=== PATIENT | male | born 1955 | race Caucasian/White ===

== ENCOUNTER 2017-12-18 14:36 | Emergency (ER) | payer OTHER ==
[~2017-12-18] VITALS: Ht 180.3 cm; Wt 84.0 kg
[2017-12-18] MEDS ORDERED: TRAMADOL HYDROC50 MG PO (15:48)
[2017-12-18 16:00] VITALS: BP 134/83
== END 2017-12-18 16:00 | disposition home or self-care (01) | DRG 563 ==
LOC: ED 14:36
PROC: 2W3FX1Z Immobilization of Left Hand using Splint (ICD-10-PCS; principal; 2017-12-18)
DX: S62.613A Displaced fracture of proximal phalanx of left middle finger, initial encounter for closed fracture (principal); S62.615A Displaced fracture of proximal phalanx of left ring finger, initial encounter for closed fracture; S62.625A Displaced fracture of middle phalanx of left ring finger, initial encounter for closed fracture; S62.617A Displaced fracture of proximal phalanx of left little finger, initial encounter for closed fracture; E11.9 Type 2 diabetes mellitus without complications; I10 Essential (primary) hypertension; F17.210 Nicotine dependence, cigarettes, uncomplicated; H54.8 Legal blindness, as defined in USA; I69.398 Other sequelae of cerebral infarction; W05.0XXA Fall from non-moving wheelchair, initial encounter; Y92.002 Bathroom of unspecified non-institutional (private) residence as the place of occurrence of the external cause

== ENCOUNTER 2018-06-06 14:49 | Emergency (ER) | payer OTHER ==
[~2018-06-06] VITALS: Ht 180.3 cm; Wt 86.4 kg
[~2018-06-06 14:49] MED LIST: TRAMADOL HYDROC50 MG PO
[2018-06-06] MEDS ORDERED: CALCIUM 600 +600 MG PO (16:01)
[2018-06-06] MEDS ORDERED: LOSARTAN POTASS50 MG PO (16:02)
[2018-06-06] MEDS ORDERED: FOLIC ACID1 MG PO (16:02)
[2018-06-06] MEDS ORDERED: FLEXERIL PO (16:14)
[2018-06-06] MEDS ORDERED: PERCOCET 10/31 COMBO PO (16:14)
[2018-06-06] MEDS ORDERED: METFORMIN500 MG PO (16:15)
[2018-06-06] MEDS ORDERED: ONGLYZA5 MG PO (16:16)
[2018-06-06] MEDS ORDERED: MULTI VIT PO (16:16)
[2018-06-06] MEDS ORDERED: OMEPRAZOLE10 MG PO (16:17)
[2018-06-06] MEDS ORDERED: GLUCOSAMINE S1000 M1 PO (16:17)
[2018-06-06 17:06] VITALS: BP 167/88
== END 2018-06-06 17:06 | disposition home or self-care (01) | DRG 552 ==
LOC: ED 14:49
DX: S32.049A Unspecified fracture of fourth lumbar vertebra, initial encounter for closed fracture (principal); S32.059A Unspecified fracture of fifth lumbar vertebra, initial encounter for closed fracture; M47.817 Spondylosis without myelopathy or radiculopathy, lumbosacral region; W18.39XA Other fall on same level, initial encounter; Y93.01 Activity, walking, marching and hiking; Y92.512 Supermarket, store or market as the place of occurrence of the external cause

== ENCOUNTER 2018-07-03 23:44 | Inpatient (IN) | payer OTHER ==
[~2018-07-03] VITALS: Ht 180.3 cm; Wt 76.3 kg
[~2018-07-03 23:44] MED LIST changes: +CALCIUM 600 +600 MG PO; +FLEXERIL PO; +FOLIC ACID1 MG PO; +GLUCOSAMINE S1000 M1 PO; +LOSARTAN POTASS50 MG PO; +METFORMIN500 MG PO; +MULTI VIT PO; +OMEPRAZOLE10 MG PO; +ONGLYZA5 MG PO; +PERCOCET 10/31 COMBO PO
--- NOTE | 2018-07-03 23:50 | NUR ---
BY EMS TO ROOM 13.
--- NOTE | 2018-07-04 00:01 | NUR ---
CLEANED PT OF URINE AND FECES.
[2018-07-04 00:17] LABS: HEMATOCRIT 37.9 % (39.0-50.0); HEMOGLOBIN 13.8 g/dl (14.0-18.0); IMMATURE GRANULOCYTES 1.2 % (0.0-5.0); MEAN CELL VOLUME 95.5 fL CALC (80.0-100.0); MEAN CORPUSCULAR HGB 34.8 pG CALC (26.0-32.0); MEAN CORPUSCULAR HGB CONC 36.4 g/L CALC (32.0-36.0); NEUT# 10.85 thou/uL (1.82-7.42); RED BLOOD COUNT 3.97 mill/uL (4.70-6.10); RED CELL DISTRI WIDTH 11.9 % (11.5-15.5)
--- NOTE | 2018-07-04 00:17 | NUR ---
PT TO CT.
[2018-07-04 00:36] LABS: INTERNATIONAL NORMALIZED RATIO 1.1 RATIO (0.7-1.3); PROTHROMBIN TIME 11.2 SECONDS (9.0-12.5)
--- NOTE | 2018-07-04 00:45 | NUR ---
PT RETURNED FROM CT. URINAL IN PLACE. CALL VU IN REACH.
[2018-07-04 00:52] LABS: ALBUMIN 2.9 g/dL (3.2-5.0); ALKALINE PHOSPHATASE 72 u/l (38-126); ANION GAP 19 (6-22 (CALC)); BILIRUBIN, TOTAL 1.1 mg/dL (0.0-1.4); BUN 25 mg/dL (8-23); BUN/CREATININE RATIO 47 (12-20 (CALC)); CARBON DIOXIDE 23 mmol/l (22-30); CHLORIDE 94 mmol/l (95-108); CREATININE 0.5 mg/dL (0.7-1.3); GFR > 60 ML/MIN (>=60 (CALC)); GFR FOR AFR.AMER. > 60 ML/MIN (>=60 (CALC)); LIPASE 128 u/l (23-300); POTASSIUM 4.1 mmol/l (3.5-5.1); SGOT/AST 40 u/l (19-48); SODIUM 131 mmol/l (137-146); TOTAL PROTEIN 5.3 g/dL (6.3-8.2)
[2018-07-04 00:53] LABS: ETHYL ALCOHOL < 10 mg/dl (0-30)
--- NOTE | 2018-07-04 01:00 | NUR ---
DANYELLE FUNEZ, AT BEDSIDE.
--- NOTE | 2018-07-04 01:27 | NUR ---
PT VERBALIZED THAT WE MAY DISCUSS HIS HEALTH CARE WITH NIECE AT BEDSIDE.
[2018-07-04 01:29] LABS: URINE BLOOD DIPSTICK NEGATIVE (NEGATIVE); URINE COLOR YELLOW; URINE GLUCOSE - DIPSTICK 500 mg/dL (NEGATIVE); URINE KETONE >=80 mg/dL (NEGATIVE); URINE LEUK ESTERASE NEGATIVE (NEGATIVE); URINE NITRITE - DIPSTICK NEGATIVE (Negative); URINE PH 5.5 (4.5-8.0); URINE PROTEIN - DIPSTICK NEGATIVE (NEG-TRACE); URINE SPECIFIC GRAVITY 1.025; URINE UROBILINOGEN - DIPSTICK 0.2 E.U./dL (0.2)
[2018-07-04 01:33] LABS: URINE BILIRUBIN - DIPSTICK NEGATIVE (NEGATIVE)
[2018-07-04 01:35] LABS: BARBITURATES NEGATIVE (NEGATIVE); COCAINE NEGATIVE (NEGATIVE); METHADONE NEGATIVE (NEGATIVE); OXCYCODONE NEGATIVE (NEGATIVE); TETRAHYDROCANNABIONOL NEGATIVE (NEGATIVE); TRICYLIC ANTIDEPRESSANTS NEGATIVE (NEGATIVE)
--- NOTE | 2018-07-04 01:40 | NUR ---
PT C/O PAIN TO BUTTOCK, REQUESTED MED.
--- NOTE | 2018-07-04 02:04 | NUR ---
REPORT CALLED TO SK[facility].
--- NOTE | 2018-07-04 02:20 | NUR ---
PT TO 261 WITH RN. PT COND STABLE.
--- NOTE | 2018-07-04 02:32 | NUR ---
PT ARRIVED TO UNIT VIA STRETCHER WITH ER STAFF; EYES CLOSED AND RESPONDS TO QUESTIONS WITH SLURRED SPEECH. STATES THAT HE CANNOT STAND; SLID WITH SLIDER AND 4 PERSON ASSIST FROM STRETCHER TO BED. KEEPS EYES CLOSED AND MOANS WITH MOVEMENT; STENCH OF URINE. ORIENTED TO PERSON AND PLACE; ABLE TO STATE THAT CINTIA IS PRESIDENT, BUT NOT ABLE TO TELL THE DATE; WHEN ASKED TO EXPLAIN WHY HE IS HERE HE STATES, "BECAUSE THEY TOLD ME TO. I DIDN'T WANT TO COME." REPORTS THAT HE FEELS SAFE AT HOME AND MAKES ENOUGH MONEY WITH HIS VA BENEFITS. ORIENTED TO ROOM AND CALL LIGHT SYSTEM. PLAN OF CARE DISCUSSED. PT ENCOURAGED TO VERBALIZE CONCERNS. STATES UNDERSTANDING. SAFETY MEASURES IN PLACE. CALL LIGHT WITHIN REACH.
[2018-07-04 03:22] VITALS: BP 148/86
--- NOTE | 2018-07-04 03:30 | NUR ---
ASSESSMENT COMPLETED. TOTAL BED BATH GIVEN. EXCORIATION TO BUTTOCK; DUODERM APPLIED AND PHOTOS IN CHART. BLANCHABLE REDNESS TO BILATERAL HEELS; ELEVATED ON PILLOWS. PT REPORTS TO STAFF THAT HIS LEFT HIM IN MAY AFTER 33 YEARS OF MARRIAGE AND IS TEARFUL DURING THIS TIME. ALLOWED TO VERBALIZE FEELINGS.
--- NOTE | 2018-07-04 04:45 | NUR ---
SNACK GIVEN; PT APPEARS FAMISHED. NO TEETH AND DRY ORAL MUCOSA. IV FLUIDS INFUSING WITHOUT DIFFICULYT; IV SITE APPEARS HEALTY. LAGOS TO BSDB DRAINING CLEAR YELLOW URINE IN ADEQUATE AMOUNTS.
[2018-07-04 07:22] VITALS: BP 133/72
--- NOTE | 2018-07-04 07:27 | NUR ---
REPORT RECEIVED FROM PRASAD VALDIVIA. PT ASSISTED TO SITTING POSITION. GENERALIZED WEAKNESS NOTED. PT DENIES PAIN. REPORTING OF CONCERNS ENCOURAGED. CALL LIGHT REVIEWED AND IN REACH. FALL PRECAUTIONS REINFORCED. PLAN OF CARE REVIEWED. PT REPORTS WISHES OF DISCHARGE. DISCHARGE PROCESS REVIEWED. PT STATES UNDERSTANDING.
--- NOTE | 2018-07-04 12:04 | NUR ---
DR. BUENO IN TO SEE PT. PLAN OF CARE UPDATED AT THIS TIME.
[2018-07-04 14:44] LABS: URINE BILIRUBIN - DIPSTICK SMALL (NEGATIVE); URINE BLOOD DIPSTICK LARGE (NEGATIVE); URINE CLARITY CLEAR; URINE COLOR YELLOW; URINE GLUCOSE - DIPSTICK >=1000 mg/dL (NEGATIVE); URINE KETONE >=80 mg/dL (NEGATIVE); URINE LEUK ESTERASE NEGATIVE (Negative); URINE NITRITE - DIPSTICK NEGATIVE (Negative); URINE PH 5.5 (4.5-8.0); URINE PROTEIN - DIPSTICK NEGATIVE (NEG-TRACE); URINE SPECIFIC GRAVITY 1.015; URINE UROBILINOGEN - DIPSTICK 0.2 E.U./dL (0.2)
[2018-07-04 14:55] LABS: URINE RBC TNTC RBC/hpf (0-5); URINE SQUAMOUS EPITHELIAL CELL FEW EPI/hpf (0-FEW)
[2018-07-04 15:20] VITALS: BP 152/77
--- NOTE | 2018-07-04 16:26 | NUR ---
PT ASSISTED TO TURN ONTO LEFT SIDE IN BED. LROM TO ALL LIMBS, GENERALIZED WEAKNESS NOTED. HEELS ON PILLOW. PT. DENIES PAIN.
--- NOTE | 2018-07-04 19:05 | NUR ---
BEDSIDE REPORT RECEIVED FROM PRASAD LAWRENCE. PT RESTING IN BED LEANING TO THE LEFT; REPOSITIONED ONTO RIGHT SIDE WITH PILLOW AND FEET OFFLOADED. C/O GENERALIED ACHE. RESPIRATIONS EVEN AND UNLABORED ON ROOM AIR. PLAN OF CARE REVIEWED. PT ENCOURAGED TO VERABLIZE CONCERNS. STATES UNDERSTANDING. SAFETY MEASURES IN PLACE. CALL LIGHT WITHIN REACH.
[2018-07-04 19:44] VITALS: BP 133/85
--- NOTE | 2018-07-04 23:55 | NUR ---
PT ASLEEP AT THIS TIME WITH NO SIGNS OF DISTRESS. RESPIRATIONS EVEN AND UNLABORED ON ROOM AIR. IV SITE APPEARS HEALTHY AND FLUSHES. PT ASSISTED WITH TURN AND REPOSITION Q2HR. SONATA GIVEN AT HS PER PT REQUEST. HS SNACK GIVEN AFTER INUSLIN. PT HAS NO REQUESTS OR CONCERNS. SAFETY MEASURES IN PLACE. CALL LIGHT WITHIN REACH.
--- NOTE | 2018-07-05 04:11 | NUR ---
NO ACUTE CHANGES IN CONDITION THROUGHOUT THE NIGHT. CALL LIGHT WITHIN REACH.
[2018-07-05 04:19] VITALS: BP 100/68
[2018-07-05 05:33] LABS: HEMOGLOBIN 12.6 g/dl (14.0-18.0); IMMATURE GRANULOCYTES 0.8 % (0.0-5.0); MEAN CELL VOLUME 93.2 fL CALC (80.0-100.0); MEAN CORPUSCULAR HGB 34.5 pG CALC (26.0-32.0); MEAN CORPUSCULAR HGB CONC 37.1 g/L CALC (32.0-36.0); NEUT# 8.32 thou/uL (1.82-7.42); RED BLOOD COUNT 3.65 mill/uL (4.70-6.10); RED CELL DISTRI WIDTH 11.7 % (11.5-15.5)
[2018-07-05 05:53] LABS: ALBUMIN 2.7 g/dL (3.2-5.0); ALKALINE PHOSPHATASE 75 u/l (38-126); ANION GAP 14 (6-22 (CALC)); BILIRUBIN, TOTAL 0.9 mg/dL (0.0-1.4); BUN 16 mg/dL (8-23); BUN/CREATININE RATIO 31 (12-20 (CALC)); CARBON DIOXIDE 29 mmol/l (22-30); CHLORIDE 93 mmol/l (95-108); CREATININE 0.5 mg/dL (0.7-1.3); GFR > 60 ML/MIN (>=60 (CALC)); GFR FOR AFR.AMER. > 60 ML/MIN (>=60 (CALC)); MAGNESIUM 1.2 mg/dL (1.6-2.3); POTASSIUM 3.4 mmol/l (3.5-5.1); SGOT/AST 34 u/l (19-48); SODIUM 133 mmol/l (137-146); TOTAL PROTEIN 5.1 g/dL (6.3-8.2)
--- NOTE | 2018-07-05 08:00 | NUR ---
REPORT RECEIVED FROM SKIP RN; PT LAYING IN BED WATCHING TV; READJUST PT IN BED; PT A/O X3; RESP EVEN AND UNLABORED; IV FLUSHED WITHOUT DIFFICULTY; LAGOS PATENT DRAINING CLEAR YELLOW URINE; AM MEDS ADMINISTER; NIECE AT BEDSIDE; PT KEPT TELLING NIECE HE WANTS TO GO HOME; POC DISCUSSED, CALL VU IN REACH. WILL CONTINUE TO MONITOR.
[2018-07-05 08:03] VITALS: BP 137/71
[2018-07-05 10:34] LABS: CHOLESTEROL HDL RATIO 3.4 (<4.4 (CALC))
--- NOTE | 2018-07-05 11:51 | NUR ---
PT SITTING UP EDGE OF BED EATING LUNCH; IVF MAGNESIUM AND ZOSYN FLOWING WITH EASE, SITE APPEARS HELATHY; LAGOS PATENT; PT VERY CHATTY WITH NIECE WHO IS AT BEDSIDE. NEICE WAITING TO SEE THE DR.PT VOICE NO CONCERNS.
--- NOTE | 2018-07-05 12:14 | NUR ---
SANJANA POLANCO AT BED SIDE DISCUSS POC
--- NOTE | 2018-07-05 12:52 | NUR ---
DR BUENO AND SHERRI ALLAN AT BED SIDE TO DISCUSS POC
[2018-07-05 15:30] VITALS: BP 155/85
--- NOTE | 2018-07-05 16:04 | NUR ---
PT LAYING IN BED ON L. SIDE; HAD A BATH; YOLIS PATENT; IV SITE REMAINS HEALTHY; RESP ENEN AND UNLABORED; SHERRI ALLAN AWARE OF PT'S SORE BOTTOM; CALL VU IN REACH; WILL CONTINUE TO MONITOR.
[2018-07-05 17:23] VITALS: BP 124/72
--- NOTE | 2018-07-05 19:32 | NUR ---
REPORT FROM TINO MELENDEZ. PT SITTING UP AT BEDSIDE. PT DENIES ANY PAIN OR SOB. RESPIRATIONS EVEN AND UNLABORED. PT ALERT AND ORIENTED. IV SITE APPEARS HEALTHY AND FLUSHED EASILY. LAGOS CATHETER PATENT DRAINING CLEAR YELLOW URINE. DISCUSSED POC. CALL LIGHT WITHIN REACH. WILL CONTINUE TO MONITOR.
[2018-07-05 19:39] VITALS: BP 123/80
--- NOTE | 2018-07-05 22:30 | NUR ---
PT REPOSITIONED IN BED. ALERT AND ORIENTED. DENIES ANY PAIN OR DISCOMFORT AT THIS TIME. LAGOS PATENT. CALL LIGHT WITHIN REACH. WILL CONTINUE TO MONITOR.
--- NOTE | 2018-07-06 00:50 | NUR ---
PT UP WITH 2 PERSON ASSIST TO SHOWER. LINENS CHANGED. PT REPOSITIONED IN BED WITH PILLOWS AT THIS TIME. CALL LIGHT WITHIN REACH. WILL CONTINUE TO MONITOR.
--- NOTE | 2018-07-06 03:43 | NUR ---
PT RESTING WITH EYES CLOSED. RESPIRATIONS EVEN AND UNLABORED. CALL LIGHT WITHIN REACH. WILL CONTINUE TO MONITOR.
[2018-07-06 04:42] VITALS: BP 120/69
--- NOTE | 2018-07-06 05:10 | NUR ---
PT INCONTINENT OF STOOL. THAI AND CATHETER CARE PROVIDED AT THIS TIME. LINENS CHANGED. PT REPOSITIONED ON SIDE WITH PILLOWS. CALL LIGHT WITHIN REACH. WILL CONTINUE TO MONITOR.
[2018-07-06 06:18] LABS: HEMATOCRIT 34.3 % (39.0-50.0); HEMOGLOBIN 12.7 g/dl (14.0-18.0); IMMATURE GRANULOCYTES 1.3 % (0.0-5.0); MEAN CELL VOLUME 92.7 fL CALC (80.0-100.0); MEAN CORPUSCULAR HGB 34.3 pG CALC (26.0-32.0); NEUT# 5.95 thou/uL (1.82-7.42); RED BLOOD COUNT 3.7 mill/uL (4.70-6.10); RED CELL DISTRI WIDTH 11.8 % (11.5-15.5)
[2018-07-06 06:38] LABS: ANION GAP 13 (6-22 (CALC)); BUN 12 mg/dL (8-23); BUN/CREATININE RATIO 25 (12-20 (CALC)); CARBON DIOXIDE 32 mmol/l (22-30); CHLORIDE 93 mmol/l (95-108); CREATININE 0.5 mg/dL (0.7-1.3); GFR > 60 ML/MIN (>=60 (CALC)); GFR FOR AFR.AMER. > 60 ML/MIN (>=60 (CALC)); MAGNESIUM 1.5 mg/dL (1.6-2.3); POTASSIUM 3.5 mmol/l (3.5-5.1); SODIUM 134 mmol/l (137-146)
--- NOTE | 2018-07-06 07:09 | NUR ---
REPORT RECEIVE FROM AL GRAHAM PT LAYING IN BED AWAKE, RESP EVEN AND UNLABORED; YOLIS PATENT; CALL VU IN REACH;
[2018-07-06 07:26] VITALS: BP 137/78
--- NOTE | 2018-07-06 07:38 | NUR ---
ASSESSMENT COMPLETED; PT A/O X3; PT REFUSED TO SIT UP IN RECLINER FOR BREAKFAST; ASSISTED PT TO EDGE OF BED, SET UP FOR BREAKFAST; IV PATENT, SITE APPEARS HEALTHY; LAGOS DRAINING TO GRAVITY; AM MEDS EXPLAINED & ADMINISTERED; PT C/O OF NO PAIN; PT STATES "IF I UPSET ANYONE I'M SORRY"; ENCOURAGE PT TO CALL FOR HELP; CALL VU IN REACH.
--- NOTE | 2018-07-06 10:13 | NUR ---
SHERRI ALLAN AT BEDSIDE TO DISCUSS POC. PT TO SIT UP IN RECLINER WITH ASSIST FOR MEALS.
[2018-07-06 11:00] VITALS: BP 136/81
--- NOTE | 2018-07-06 11:06 | NUR ---
PT SITTING UP IN BED; WATCHING TV; LAGOS PATENT; CAP BLOCKER AT BEDSIDE TO OBTAIN ACCU CHECK AND VITALS; IV SITE REMAIN HEALTHY; CALL VU IN REACH.
--- NOTE | 2018-07-06 11:31 | NUR ---
DR MUÑIZ AT BEDSIDE; ASSISTED PT TO RECLINER; MAX ASSIST X2; SET PT UP FOR LUNCH; CALL VU IN REACH;
--- NOTE | 2018-07-06 12:33 | NUR ---
ASSISTED PT BACK INTO BED X2 ASSIST; LAGOS CATHETER REMOVED WITHOUT ANY TRAUMA; DID THAI CARE; URINAL AT BEDSIDE; CALL VU IN REACH.
--- NOTE | 2018-07-06 14:16 | NUR ---
PT GAVE THE OK TO TRIM HIS FACIAL HAIR; PT TOLERATED WELL; SITTING UP ON EDGE OF BED; URINAL IN REACH.
[2018-07-06 14:45] VITALS: BP 129/78
--- NOTE | 2018-07-06 16:09 | NUR ---
PT INCONTINENT OF URINE, THAI CARE DONE, CHANGE INTO CLEAN GOWN; BLADDER SCAN OBTAINED SHOWS 240ML; PER SHERRI ALLAN PT TO BE BLADDER SCAN Q6 HRS; PT EDUCATED ON BLADDER SCAN; PT ASK FOR COFFEE WHICH WAS GIVEN; SAFETY PRECAUTION REINFORE; CALL VU AND URINAL IN REACH.
--- NOTE | 2018-07-06 16:26 | NUR ---
PT VOIDED 125CC CLEAR, YELLOW URINE IN URINAL; PT SITTING UP EDGE OF BED EATING CHIPS; NO S/S OF DISTRESS NOTED.
--- NOTE | 2018-07-06 18:16 | NUR ---
PT CALLED MUTUEL TELLER VU, ENTERED ROOM, PT STATES HE WANTS TO USE THE BATHROOM, BEDSIDE COMMODE PROVIDED, PT GOT AGITATED SAYING "JUST LEAVE IT HERE AND I WILL PUT MYSELF ON COMMODE" EXPLANIED FALL PRECAUTION, PT THEN STATES "I DON'T HAVE TO GO NOW" ASSISTED PT LEGS INTO BED, THAI CARE PROVIDED, CLEAN GOWN AND LINES; CALL VU IN REACH.
--- NOTE | 2018-07-06 19:00 | NUR ---
REPORT FROM TINO MELENDEZ. PT RESTING IN BED WITH EYES CLOSED. EASILY AROUSED. ALERT AND ORIENTED. IV SITE APPEARS HEALTHY. PT DENIES ANY PAIN OR DISCOMFORT. DISCUSSED POC. PT VERBALIZED UNDSTANDING. CALL LIGHT WITHIN REACH AND BED IN LOWEST POSITION. WILL CONTINUE TO MONITOR.
[2018-07-06 19:47] VITALS: BP 143/83
--- NOTE | 2018-07-06 22:27 | NUR ---
PT INCONTINENT OF BLADDER AT THIS TIME. POST BLADDER SCAN 106ML NOTED. LINENS CHANGED AND PARTIAL BED BATH PROVIDED.
--- NOTE | 2018-07-07 00:06 | NUR ---
PT INCONTINENT OF BLADDER. PT DENIES FEELING THE NEED TO VOID. PARTIAL BED BATH AND PERICARE PROVIDED. PT REPOSITIONED WITH PILLOWS ON SIDE. BARRIER CREAM APPLIED AND LINENS CHANGED. PT DENIES ANY PAIN OR DISCOMFORT. CALL LIGHT WITHIN REACH. WILL CONTINUE TO MONITOR.
--- NOTE | 2018-07-07 02:24 | NUR ---
PT REPOSITIONED ON RIGHT SIDE WITH PILLOWS. PT INCONTINENT OF BLADDER. LINENS CHANGED. PERICARE PROVIDED. CALL LIGHT WITHIN REACH. WILL CONTINUE TO MONITOR.
--- NOTE | 2018-07-07 04:13 | NUR ---
PT VOIDED 200ML CLEAR YELLOW URINE IN URINAL AND HAD INCONTINENT EPISODE IN BED. LINENS CHANGED AND PARTIAL BED BATH PROVIDED. CALL LIGHT WITHIN REACH. WILL CONTINUE TO MONITOR.
[2018-07-07 04:48] VITALS: BP 154/87
[2018-07-07 05:04] LABS: HEMATOCRIT 34.7 % (39.0-50.0); IMMATURE GRANULOCYTES 1.2 % (0.0-5.0); MEAN CELL VOLUME 92.3 fL CALC (80.0-100.0); MEAN CORPUSCULAR HGB 34.6 pG CALC (26.0-32.0); MEAN CORPUSCULAR HGB CONC 37.5 g/L CALC (32.0-36.0); NEUT# 5.25 thou/uL (1.82-7.42); RED BLOOD COUNT 3.76 mill/uL (4.70-6.10); RED CELL DISTRI WIDTH 11.8 % (11.5-15.5)
[2018-07-07 05:16] LABS: ANION GAP 10 (6-22 (CALC)); BUN 8 mg/dL (8-23); BUN/CREATININE RATIO 16 (12-20 (CALC)); CARBON DIOXIDE 36 mmol/l (22-30); CHLORIDE 92 mmol/l (95-108); CREATININE 0.5 mg/dL (0.7-1.3); GFR > 60 ML/MIN (>=60 (CALC)); GFR FOR AFR.AMER. > 60 ML/MIN (>=60 (CALC)); MAGNESIUM 1.4 mg/dL (1.6-2.3); POTASSIUM 3.1 mmol/l (3.5-5.1); SODIUM 135 mmol/l (137-146)
--- NOTE | 2018-07-07 05:30 | NUR ---
PT INCONTINENT OF BLADDER. PERICARE PROVIDED. BARRIER CREAM APPLIED. LINENS CHANGED. PT TRANSFERED TO RECLINER AT THIS TIME UPON REQUEST. MEDICATED FOR RIGHT HIP PAIN 7-10. IV ABT INITIATED AT THIS TIME. SNACK PROVIDED UPON REQUEST. CALL LIGHT WITHIN REACH. WILL CONTINUE TO MONITOR.
--- NOTE | 2018-07-07 07:45 | NUR ---
REPORT RECEIVED FROM AL GRAHAM; PT SITTING UP IN RECLINER; A/O; RESP EVEN AND UNLABORED; NO S/S OF DISTRESS NOTED; INCONTINENT OF URINE; INSTRUCTIONAL AIDE CLEANED HIM UP; PT STOOD HOLDING ON TO BED RAIL; IV PATENT, FLUSHED WITHOUT DIFFICULTY; CALL VU IN REACH; AM MEDS ADMINISTER; PT NOW EATING BREAKFAST; PT ENCOURAGE TO CALL FOR ASSISTANCE AND USE OF URINAL.
[2018-07-07 07:51] VITALS: BP 126/69
--- NOTE | 2018-07-07 11:10 | NUR ---
PT LAYING IN BED WATCHING TV; VOIDED 100CC CLEAR, YELLOW URINE IN URINAL; MAGNESIUM FLOWING WITH EASE, IV SITE LOOKS HEALTHY; RESP EVEN AND UNLABOED; PT ENCOURAGE TO CALL FOR ASSISTANCE AND USE OF URINAL; PT VERBALIZING UNDERSTANDING. CALL VU IN REACH.
[2018-07-07 15:40] VITALS: BP 146/76
--- NOTE | 2018-07-07 16:51 | NUR ---
PT LAYING IN BED ON R SIDE AWAKE; RESP EVEN AND UNLABORED; IVF INFUSING WELL; PT BEEN UP IN RECLINER FOR MEALS AND UP TO BSC WITH ASSIST FROM AUTOMATIC [employer]AB[employer]IC CUTTER; CALL VU AND URINAL IN REACH; PT VOICE NO CONCERNS AT THIS TIME.
[2018-07-07 19:05] VITALS: BP 142/78
--- NOTE | 2018-07-07 19:35 | NUR ---
REPORT FROM TINO MELENDEZ. PT RESTING IN BED. ALERT AND ORIENTED. STATES " I DON'T FEEL GOOD". PT TEMP 101.3. REMOVED HEAVY BLANKETS AND TURNED DOWN AIR. APAP ADMINISTERED AT THIS TIME. PT DENIES ANY PAIN. IV SITE APPEARS HEALTHY WITH IVF INFUSING WITHOUT DIFFICULTY. UA SAMPLE OBTAINED AND SENT TO LAB. DISCUSSED POC. PT VERBALIZED UNDERSTANDING. ENCOURAGED PT TO CALL FOR NEEDS. CALL LIGHT WITHIN REACH. WILL CONTINUE TO MONITOR.
--- NOTE | 2018-07-07 19:52 | NUR ---
REPORT FROM TINO. PT RESTING IN BED. ALERT AND ORIENTED. PT DENIES ANY PAIN OR DISCOMFORT. PT HAS URINAL AT BEDSIDE. IV SITE APPEARS HEALTHY AND FLUSHES EASILY. DISCUSSED POC. PT VERBALIZED UNDERSTANDING. ENCOURAGED PT TO CALL FOR NEEDS. CALL LIGHT WITHIN REACH. WILL CONTINUE TO MONITOR.
--- NOTE | 2018-07-07 22:45 | NUR ---
PT REQUEST SLEEPING PILL AND SNACK. MEDICATED AND PROVIDED SNACK AT THIS TIME. ENCOURAGED PT TO TURN OFTEN IN BED. VERBALIZED AND DEMONSTRATED UNDERSTANDING. CALL LIGHT WITHIN REACH. WILL CONTINUE TO MONITOR.
--- NOTE | 2018-07-08 03:35 | NUR ---
PT SPILLED URINAL IN BED. LINENS CHANGED AT THIS TIME. THAI CARE PROVIDED. MEDICATED FOR BACK PAIN 7-10 WITH ULTRAM. PT REPOSITIONED IN BED WITH PILLOWS. CALL LIGHT WITHIN REACH. WILL CONTINUE TO MONITOR.
[2018-07-08 05:16] VITALS: BP 140/83
[2018-07-08 05:35] LABS: ANION GAP 11 (6-22 (CALC)); BUN 10 mg/dL (8-23); BUN/CREATININE RATIO 21 (12-20 (CALC)); CARBON DIOXIDE 35 mmol/l (22-30); CHLORIDE 93 mmol/l (95-108); CREATININE 0.5 mg/dL (0.7-1.3); GFR > 60 ML/MIN (>=60 (CALC)); GFR FOR AFR.AMER. > 60 ML/MIN (>=60 (CALC)); POTASSIUM 3.5 mmol/l (3.5-5.1); SODIUM 135 mmol/l (137-146)
[2018-07-08 05:52] LABS: HEMATOCRIT 34.9 % (39.0-50.0); HEMOGLOBIN 12.9 g/dl (14.0-18.0); MEAN CELL VOLUME 93.1 fL CALC (80.0-100.0); MEAN CORPUSCULAR HGB 34.4 pG CALC (26.0-32.0); RED BLOOD COUNT 3.75 mill/uL (4.70-6.10); RED CELL DISTRI WIDTH 11.7 % (11.5-15.5)
--- NOTE | 2018-07-08 07:10 | NUR ---
REPORT RECEIVED FROM AL GRAHAM;PT APPEARS TO BE SLEEPING IN SEMI FOWLERS POSITION;RESPIRATIONS EVEN AND UNLABORED ON RA;NO S/S OF DISTRESS NOTED AT THIS TIME;FALL PRECAUTIONS IN PLACE WITH BED IN THE LOWEST POSITION AND CALL LIGHT IN REACH;WILL CONTINUE TO MONITOR
[2018-07-08 08:19] VITALS: BP 121/81
--- NOTE | 2018-07-08 08:20 | NUR ---
PT RESTING AT BEDSIDE EATING BREAKFAST;ACCUCHECK 166, PT COVERED WITH SLIDING SCALE NOVOLOG PER ORDER;VS OBTAINED AND ASSESSMENT COMPLETED;PT ALERT AND ORIENTED X3;PT DENIES ANY CURRENT PAIN,PAIN SCALE AND REPORTING EDUCATED;RESPIRATIONS EVEN AND UNLABORED ON RA,CLEAR/DIMINISHED LUNG SOUNDS NOTED;I.S. AT BEDSIDE AND PT EDUCATED ON USE X10 PER HOUR WHILE AWAKE;ABDOMEN SOFT ON PALPATION AND ACTIVE IN ALL 4 QUADRANTS;WEAK PEDAL PULSES;#22G TO RIGHT FOREARM FLUSHED AND PATENT,SITE APPEARS HEALTHY;PT DENIES ANY CURRENT NEEDS AND IS INSTRUCTED TO CALL FOR ASSISTANCE IF NEEDED;FALL PRECAUTIONS IN PLACE WITH CALL LIGHT IN REACH;WILL CONTINUE TO MONITOR
--- NOTE | 2018-07-08 12:05 | NUR ---
PT RESTING AT BEDSIDE WITH SPOUSE AT SIDE;RESPIRATIONS EVEN AND UNLABORED ON RA;PT DENIES ANY CURRENT PAIN OR NEEDS;ACCUCHECK 283 AND PT COVERED WITH NOVOLOG SLIDING SCALE PER ORDER;ALL SAFETY PRECAUTIONS REINFORCED WITH FALL PRECAUTIONS IN PLACE;CALL LIGHT IN REACH;WILL CONTINUE TO MONITOR
--- NOTE | 2018-07-08 13:16 | NUR ---
PT REPORTS RIGHT HIP PAIN RATING 6/10 ON THE PAIN SCALE AND REQUESTS PAIN MEDICATION;PT MEDICATED WITH PRN ULTRAM 50MG PO AT THIS TIME,WILL MONITOR FOR EFFECTIVENESS
[2018-07-08 14:59] VITALS: BP 132/78
--- NOTE | 2018-07-08 16:00 | NUR ---
PT APPEARS TO BE SLEEPING IN SEMI FOWLERS POSITION;RESPIRATIONS EVEN AND UNLABORED ON RA;NO S/S OF DISTRESS NOTED;IV SITE TO RIGHT FOREARM REMAINS PATENT;ALL SAFETY PRECAUTIONS REINFORCED WITH BED IN THE LOWEST POSITION AND CALL LIGHT IN REACH;WILL CONTINUE TO MONITOR
--- NOTE | 2018-07-08 19:27 | NUR ---
BEDSIDE REPORT RECEIVED FROM AL HERBERT. PT RESTING SUPINE IN BED; ALERT AND ORIENTED. C/O MILD LEFT HIP PAIN. RESPIRATIONS EVEN AND UNLABORED ON ROOM AIR. PLAN OF CARE REVIEWED. PT ENCOURAGED TO VERBALIZE CONCERNS. STATES UNDERSTANDING. SAFETY MEASURES IN PLACE. CALL LIGHT WITHIN REACH.
[2018-07-08 19:54] VITALS: BP 113/67
--- NOTE | 2018-07-08 21:50 | NUR ---
PT INCONTINENT OF URINE; PT TRANSFERED TO RECLINER WITH WALKER AND ONE PERSON ASSIST; UNSTEADY AND C/O RIGHT HIP WHEN STANDING. LINENS CHANGED AND THAI CARE GIVEN. TRANSFERED BACK INTO BED AND SNACK GIVEN ALONG WITH HS MEDS, ULTRAN AND SONATA.
--- NOTE | 2018-07-09 00:41 | NUR ---
PT ASLEEP AT THIS TIME WITH NO SIGNS OF DISTRESS. RESPIRATIONS EVEN AND UNLABORED ON ROOM AIR. IV FLUIDS INFUSING AT KVO WITHOUT DIFFICULTY; IV SITE APPEARS HEALTHY. PT REMAINS A MAX ASSIST. SAFETY MEASURES IN PLACE. CALL LIGHT WITHIN REACH.
[2018-07-09 04:47] VITALS: BP 139/78
--- NOTE | 2018-07-09 05:16 | NUR ---
NO ACUTE CHANGES IN CONDITION THROUGHOUT THE NIGHT. NO REQUESTS OR CONCERNS AT THIS TIME. SAFETY MEASURES IN PLACE. CALL LIGHT WITHIN REACH.
[2018-07-09 05:53] LABS: ANION GAP 11 (6-22 (CALC)); BUN 12 mg/dL (8-23); BUN/CREATININE RATIO 21 (12-20 (CALC)); CARBON DIOXIDE 37 mmol/l (22-30); CHLORIDE 93 mmol/l (95-108); CREATININE 0.6 mg/dL (0.7-1.3); GFR > 60 ML/MIN (>=60 (CALC)); GFR FOR AFR.AMER. > 60 ML/MIN (>=60 (CALC)); MAGNESIUM 1.7 mg/dL (1.6-2.3); POTASSIUM 3.7 mmol/l (3.5-5.1); SODIUM 136 mmol/l (137-146)
[2018-07-09 08:00] VITALS: BP 151/84
--- NOTE | 2018-07-09 08:00 | NUR ---
PT SITTING ON THE SIDE OF THE BED BED. VITAL SIGNS OBTAINED AND ASSESSMENT COMPLETED. ALERT AND ORIENTED.PT DENIES ANY PAIN OR DISCOMFORT AT THIS TIME. RESPIRATIONS EVEN AND UNLABORED ON ROOM AIR. LUNG SOUND CLEAR/DIMINISHED. RT PEDAL PULSE STRONG LF PEDAL PULSE WEAK. IV # 22 RT FOREARM, INFUSING NS 20ML/HR, APPEARS HEALTHY. PT ENCOURAGED TO USE CALL VU IF NEEDS SHOULD ARISE. BED IN LOWEST POSITION. CALL LIGHT WITHIN REACH. WILL CONTINUE TO MONITOR.
--- NOTE | 2018-07-09 12:09 | NUR ---
PATIENT RESSTING ON LEFT SIDE. ASKING WHY HE NEEDS TO GET UP AND AMBULALTE WHEN IT RESULTS IN HURTING HIS HIPS SO BADLY LATER ON. DISCUSSED COMPLICATITONS OF PROLONGED BED REST. PATIENT AGREES TO TRY AND STAND IF HE CAN STOP WHEN IT HURTS TO MUCH. SUPINE TO SIT WITH MOD A AT EOB. SIT TO STAND WITH BED RAISED AND MIN A FOR STANDING AT STANDARD WALKER. ONLY ABLE TO STAND < 1 MIN WITH C/O BILAT HIP PAIN. HE SAT DOWN ABRUPTY WITHOUT GOOD HAND PLACEMENT. WE ATTEMPTED LATERAL EXCURSION WITH MODIFIED SIT TO STAND TO MOVE UP IN BED. PATIENT HAD SIGNIFICANT DIFFICUTY WITH THIS AND REQUESTED TO LAY DOWN. SIT TO SUPINE WITH MOD A FOR LE'S ONTO BED. PATIENT AGREES TOO TRY HARDER WHEN HE IS NOT SO UNCOMFORTABLE AND CRANKY. HE IS APOLOGETIC FOR HIS LACK OF ABILITY TO PUSH HIMSELLF MORE. WILL CONTINUE TO ENCOURAGE PATIENT TO INCREASE MOBILITY.
--- NOTE | 2018-07-09 12:12 | NUR ---
REPORT RECEIVED FROM PRASAD VALDIVIA. PT RESTING IN BED NO SIGNS OR SYMPTOMS OF DISTRESS. SAFETY PRECAUTIONS IN PLACE. WILL CONTINUE TO MONITOR.
--- NOTE | 2018-07-09 12:35 | NUR ---
DR BUENO AT PT BEDSIDE DISCUSSING PLAN OF CARE.
--- NOTE | 2018-07-09 14:22 | NUR ---
PT RESTING IN BED. RESPIRATIONS EVEN AND UNLABORED. NO SIGNS OR SYMPTOMS OF DISTRESS. PT DENIES ANY PAIN OR DISCOMFORT. SAFETY PRECAUTIONS IN PLACE. CALL LIGHT WITHIN REACH. WILL CONTINUE TO MONITOR.
[2018-07-09 16:00] VITALS: BP 136/81
--- NOTE | 2018-07-09 16:00 | NUR ---
PT RESTING IN BED. NO SIGNS OR SYMPTOMS OF DISTRESS. RESPIRATIONS EVEN AND UNLABORED. SAFETY PRECAUTIONS IN PLACE. CALL LIGHT WITHIN REACH. WILL CONTINUE TO MONITOR.
[2018-07-09 19:25] VITALS: BP 139/84
--- NOTE | 2018-07-09 20:55 | NUR ---
ASSESSMENT IS COMPLETED: IV SITE IS FREE FROM REDNESS OR EDEMA. HR IS REG,PULSES ARE STRONG X4, ABD IS SOFT WITH ACTIVE BS. BREATH SOUNDS ARE CLEAR BILATERALLY, NO C/O SOB NAKED IN THE BED. WANTING TO BE LEFT ALONE. CONTINUE TO OBSERVE AND MONITOR.
--- NOTE | 2018-07-10 00:15 | NUR ---
PT IS RESTING IN BED WITH NO DISTRESS NOTED. IV SITE IS FREE FROM REDNESS OR EDEMA.
[2018-07-10 03:49] VITALS: BP 138/68
--- NOTE | 2018-07-10 04:30 | NUR ---
PT IS RESTING IN BED WITH NO DISTRESS NOTED. IV SITE IS FREE FROM REDNESS OR EDEMA.
[2018-07-10 05:44] LABS: HEMOGLOBIN 13.5 g/dl (14.0-18.0); IMMATURE GRANULOCYTES 0.6 % (0.0-5.0); MEAN CELL VOLUME 94.9 fL CALC (80.0-100.0); MEAN CORPUSCULAR HGB 34.6 pG CALC (26.0-32.0); MEAN CORPUSCULAR HGB CONC 36.5 g/L CALC (32.0-36.0); NEUT# 3.88 thou/uL (1.82-7.42); RED BLOOD COUNT 3.9 mill/uL (4.70-6.10); RED CELL DISTRI WIDTH 11.9 % (11.5-15.5)
[2018-07-10 05:56] LABS: ALKALINE PHOSPHATASE 69 u/l (38-126); ANION GAP 12 (6-22 (CALC)); BILIRUBIN, TOTAL 0.4 mg/dL (0.0-1.4); BUN 11 mg/dL (8-23); BUN/CREATININE RATIO 21 (12-20 (CALC)); CARBON DIOXIDE 32 mmol/l (22-30); CHLORIDE 96 mmol/l (95-108); CREATININE 0.5 mg/dL (0.7-1.3); GFR > 60 ML/MIN (>=60 (CALC)); GFR FOR AFR.AMER. > 60 ML/MIN (>=60 (CALC)); MAGNESIUM 1.5 mg/dL (1.6-2.3); POTASSIUM 4.1 mmol/l (3.5-5.1); SGOT/AST 39 u/l (19-48); SODIUM 136 mmol/l (137-146); TOTAL PROTEIN 5.9 g/dL (6.3-8.2)
[2018-07-10 05:58] LABS: ALBUMIN 3.3 g/dL (3.2-5.0)
--- NOTE | 2018-07-10 07:00 | NUR ---
REPORT RECEIVED FROM AL CHAUDHRY. PT RESTING BED, NO SIGNS OR SYMPTOMS OF DISTRESS. SAFETY PRECAUTIONS IN PLACE. WILL CONTINUE TO MONITOR.
[2018-07-10 08:00] VITALS: BP 132/66
--- NOTE | 2018-07-10 08:00 | NUR ---
PT RESTING IN BED. ALERT AND ORIENTED. VS OBTAINED AND ASSESSMANT COMPLETED. PT COMPLAINS OF PAIN BEING A 7 OUT 10, TO BE MEDICATED ACCORDINGLY PER EMAR. RESPIRATIONS EVEN AND UNLABORED ON RA. LUNGS SOUND CLEAR. PEDAL PULSES STONG. IV #22 IN RT FOREARM, APPEARS HEALTHY. BED IN LOWEST POSITON. CALL LIGHT WITHIN REACH. WILL CONTINUE TO MONITOR.
--- NOTE | 2018-07-10 10:50 | NUR ---
PT EDUCATED ON IV SITE EXPIRATION DATE AND REFUSES SIGHT CHANGE AT THIS TIME STATING "IM GONNA LEAVE TODAY ANYWAYS";TEGEDERM CHANGED AT THIS TIME AND SITE CLEANSED WITH SALINE,PT TOLERATED WELL;WILL CONTINUE TO MONITOR
--- NOTE | 2018-07-10 14:01 | NUR ---
PT RESTING IN BED. NO SIGNS OR SYMPTOMS OF DISTRESS. RESPIRATIONS EVEN AND UNLABORED, ON RA. PT ENCOURAGED USE CALL VU IF NEEDS SHOULD ARISE. SAFETY PRECAUTIONS IN PLACE. CALL LIGHT WITHIN REACH. WILL CONTINUE TO MONITOR.
--- NOTE | 2018-07-10 16:00 | NUR ---
PT RESTING IN BED. NO SIGNS OR SYMPTOMS OF DISTRESS. RESPIRATIONS EVEN AND UNLABORED, ON RA. SAFETY PRECAUTIONS IN PLACE. CALL LIGHT W/IN REACH. WILL CONTINUE TO MONITOR.
[2018-07-10 16:14] VITALS: BP 135/85
--- NOTE | 2018-07-10 16:25 | NUR ---
The patient very agitated over his situation. He tells me he has pain in the right hip with standing. He has high tone on the LLE with attempts at standing and is very unsafe with transfers and short distance gait ( 2-3 steps ) requiring mod max assist of 1. He is a good rehab candidate for safety and fall prevention as well as to decrease his burden of care. He worked on transfers - standing weight shift and standing balance
--- NOTE | 2018-07-10 18:50 | NUR ---
BEDSIDE REPORT RECEIVED FROM AL HERBERT. PT RESTING IN BED ON LEFT SIDE; ALERT AND ORIENTED. C/O MILD PAIN TO RIGHT HIP. RESPIRATIONS EVEN AND UNLABORED ON ROOM AIR. PLAN OF CARE REVIEWED. PT ENCOURAGED TO VERBALIZE CONCERNS. STATES UNDERSTANDING. SAFETY MEASURES IN PLACE. CALL LIGHT WITHIN REACH.
[2018-07-10 19:49] VITALS: BP 107/75
--- NOTE | 2018-07-10 21:02 | NUR ---
UTLRAM GIVEN FOR RIGHT HIP PAIN. PT NOTED TO HAVE URINE ON HIS CLOTHING AND BEDDING; STATES THAT HE SPILLED HIS URINAL AND WAS NOT INCONTINENT. CHANED INTO GOWN, LINENS CHANGED, AND HYGEINE PROVIDED.
--- NOTE | 2018-07-11 00:22 | NUR ---
PT ASLEEP AT THIS TIME WITH NO SIGNS OF DISTRESS. RESPIRATIONS EVEN AND UNLABORED ON ROOM AIR. IV SITE APPEARS HEALTHY AND FLUSHES. 1-2 PERSON ASSIST; DOES NOT AMBULATE WELL; CONTINUES TO WORK WITH PT. CALL LIGHT WITHIN REACH.
[2018-07-11 03:40] VITALS: BP 144/93
--- NOTE | 2018-07-11 04:20 | NUR ---
PT INCONTINENT OF URINE. SINUS RHYTHM WITH 1ST DEGREE AVB ON TELE. NO ACUTE CHANGES IN CONDITION THROUGHOUT THE NIGHT.
--- NOTE | 2018-07-11 07:00 | NUR ---
REPORT RECEIVED FROM PRASAD VALDIVIA. PT SLEEPING IN BED. NO SIGNS OR SYMPTOMS OF DISTRESS. WILL CONTINUE TO MONITOR.
[2018-07-11 07:50] VITALS: BP 130/79
--- NOTE | 2018-07-11 08:00 | NUR ---
PT SITTING AT THE SIDE OF THE BED EATING BREAKFAST. ALERT AND ORIENTED. VS OBTAINED AND ASSESSMENT COMPLTETED. RESPIRATIONS EVEN AND UNLBORED ON RA. LUNGS CLEAR. TELE [id number] IN PLACE. PEDAL PULSE WEAK. PT DENIES ANY PAIN OR DISCOMFORT AT THIS TIME. IV #22 RT FOREARM, PATENT, APPEARS HEALTHY. SAFETY PRECAUTIONS IN PLACE. CALL LIGHT WITHIN REACH WILL CONTINUE TO MONITOR.
[2018-07-11 10:50] VITALS: BP 142/84
--- NOTE | 2018-07-11 11:25 | NUR ---
PT RESTING IN BED EATING CHEESE PUFFS PT RE-EDUCATED ON DIABETIC DIET, ACCUCHECK OF 254, 5 UNITS OF INSULIN GIVEN. TELE LEADS REPLACE AFTER PT REMOVED. TELE MONITOR IN PLACE. NO SIGNS OR SYMPTOMS OF DISTRESS. RESPIRATIONS EVEN AND UNLABORED ON RA. SAFETY PRECAUTIONS IN PLACE. CALL LIGHT WITHIN REACH. WILL CONTINUE TO MONITOR.
[2018-07-11] MEDS ORDERED: LEXAPRO10 MG PO (12:02)
[2018-07-11] MEDS ORDERED: LOSARTAN POT50 MG PO (12:02)
[2018-07-11] MEDS ORDERED: AMOX/K CLAV875 M1 PO (12:02)
[2018-07-11] MEDS ORDERED: ZALEPLON5 MG PO (12:03)
[2018-07-11] MEDS ORDERED: PANTOPRAZOLE SO40 M1 PO (12:03)
[2018-07-11] MEDS ORDERED: TRAMADOL HCL50 MG PO (12:03)
[2018-07-11] MEDS ORDERED: LEVEMIR100 UNIT/M SC (12:04)
--- NOTE | 2018-07-11 13:30 | NUR ---
PT RESTING IN BED. IV SITE #22 IN THE LEFT FOREARM, REMOVED, CATHETER INTACT.
--- NOTE | 2018-07-11 14:16 | NUR ---
Discharge instructions given. Patient verbalizes understanding of same. Discharged in stable condition via Ambulatory to Home with friend. All belongings sent with pt.
--- NOTE | 2018-07-11 14:48 | NUR ---
Discharge instructions given. Patient verbalizes understanding of same. Discharged in stable condition via Wheelchair to [facility] with staff. All belongings sent with pt.
--- NOTE | 2018-07-11 15:05 | NUR ---
GAVE REPORT TO NURSE AT [facility].
== END 2018-07-11 14:48 | DRG 871 ==
LOC: ED 23:44 → ED-I 07-04 01:00 → ED 07-04 01:46 → MS2 07-04 01:47
PROVIDERS: Family Medicine; Internal Medicine Nephrology; Nurse Practitioner Family; ADMIT Internal Medicine; ATTEND Internal Medicine
PROC: 0T9B70Z Drainage of Bladder with Drainage Device, Via Natural or Artificial Opening (ICD-10-PCS; principal; 2018-07-04)
PROC: 3E02340 Introduction of Influenza Vaccine into Muscle, Percutaneous Approach (ICD-10-PCS; 2018-07-04)
DX: A41.9 Sepsis, unspecified organism (principal); G93.41 Metabolic encephalopathy; E46 Unspecified protein-calorie malnutrition; E87.1 Hypo-osmolality and hyponatremia; I69.954 Hemiplegia and hemiparesis following unspecified cerebrovascular disease affecting left non-dominant side; R65.20 Severe sepsis without septic shock; I10 Essential (primary) hypertension; H54.8 Legal blindness, as defined in USA; T38.3X6A Underdosing of insulin and oral hypoglycemic [antidiabetic] drugs, initial encounter; T50.906A Underdosing of unspecified drugs, medicaments and biological substances, initial encounter; F32.9 Major depressive disorder, single episode, unspecified; E11.319 Type 2 diabetes mellitus with unspecified diabetic retinopathy without macular edema; E11.65 Type 2 diabetes mellitus with hyperglycemia; I69.992 Facial weakness following unspecified cerebrovascular disease; E87.6 Hypokalemia; E83.42 Hypomagnesemia; J44.9 Chronic obstructive pulmonary disease, unspecified; D63.8 Anemia in other chronic diseases classified elsewhere; E86.1 Hypovolemia; L89.302 Pressure ulcer of unspecified buttock, stage 2; F17.200 Nicotine dependence, unspecified, uncomplicated; I69.918 Other symptoms and signs involving cognitive functions following unspecified cerebrovascular disease; F10.10 Alcohol abuse, uncomplicated; R32 Unspecified urinary incontinence; R29.6 Repeated falls; S32.040D Wedge compression fracture of fourth lumbar vertebra, subsequent encounter for fracture with routine healing; S32.050D Wedge compression fracture of fifth lumbar vertebra, subsequent encounter for fracture with routine healing; W19.XXXD Unspecified fall, subsequent encounter; Z98.84 Bariatric surgery status; Z68.24 Body mass index [BMI] 24.0-24.9, adult; Z91.128 Patient's intentional underdosing of medication regimen for other reason; Z79.4 Long term (current) use of insulin; Z23 Encounter for immunization
CPT/HCPCS: J1650; J3475